=== PATIENT | female | born 1955 | race Caucasian/White ===

== ENCOUNTER → 2018-07-01 09:54 | Outpatient (CLI) | payer OTHER, MEDICAID, SELFPAY ==
--- NOTE | 2018-07-01 10:25 | DI.RAD.S_ITS ---
PROCEDURE: XR RIBS LT MIN 3V W CXR1V INDICATIONS: rib pain and shortness of breath TECHNIQUE: 2 views of the left ribs were acquired, along with a single view chest. COMPARISON: [facility], , CHEST 2 VIEW, 10/17/2016, 15:43. FINDINGS: Surgical changes and devices: None. Bones and chest wall: No fractures or dislocations. No suspicious bony lesions. Overlying soft tissues appear unremarkable. Lungs and pleura: No pleural effusions or pneumothorax. Lungs appear clear. Mediastinum: Mediastinal contours appear normal. Heart size is normal. IMPRESSION: No acute process. No evidence of rib fracture.. If symptoms and/or clinical suspicion for pathology persist, further assessment with repeat, or advanced imaging (e.g., CT or bone scan) may be helpful for further assessment. Dictated by: Denisa Su M.D. on 07/01/2018 at 10:38 Approved by: Denisa Su M.D. on 07/01/2018 at 10:39
== END ==
PROVIDERS: Family Provider Family Medicine; PCP Family Medicine; Visit Provider Physician Assistant
DX: R07.81 Pleurodynia (principal); R06.02 Shortness of breath
CPT/HCPCS: 71101

== ENCOUNTER → 2018-10-13 11:32 | Outpatient (CLI) | payer OTHER, MEDICAID, SELFPAY ==
[2018-10-13 13:28] LABS: Appearance Urine UA CLEAR; Bilirubin Urine UA NEGATIVE (NEGATIVE); Color Urine UA YELLOW; Glucose Urine UA NEGATIVE (Negative); Ketones Urine UA NEGATIVE (NEGATIVE); Leukocyte Esterase Urine UA NEGATIVE (NEGATIVE); Nitrite Urine UA NEGATIVE (Negative); Occult Blood Urine UA 1+ (Negative); Protein Urine UA NEGATIVE (Negative); Specific Gravity Urine UA 1.025 (1.000-1.035); Urobilinogen Urine UA 0.2 E.U./dL (0.2); pH Urine UA 5.5 (4.5-8.0)
[2018-10-13 13:54] LABS: Bacteria Urine Few (2-10); Culture Indicated Urine Cult Not Indicated; RBC Urine 1-5/HPF (0-5/HPF); WBC Urine 0-1/HPF (0-5/HPF)
== END ==
PROVIDERS: Family Provider Family Medicine; PCP Family Medicine; Visit Provider Family Medicine
DX: R30.0 Dysuria (principal)
CPT/HCPCS: 81001

== ENCOUNTER → 2019-07-01 10:02 | Outpatient (CLI) | payer OTHER, MEDICAID, SELFPAY ==
[2019-07-01 11:20] LABS: Add Manual Diff / Slide Review NO; Basophils Absolute Auto 100 /uL (0-100); Basophils Percent Auto 1.2 % (0-2); Eosinophils Absolute Auto 100 /uL (0-450); Eosinophils Percent Auto 1.6 % (2-4); Hematocrit 38.3 % (36-46); Hemoglobin 12.9 g/dL (12.0-16.0); Lymphocytes Absolute Auto 1500 /uL (1100-4500); Lymphocytes Percent Auto 22.7 % (25-40); Mean Corpuscular HGB Conc 33.6 % (30-36); Mean Corpuscular Volume 83.2 fL (80-100); Monocytes Absolute Auto 400 /uL (0-900); Monocytes Percent Auto 5.9 % (3-14); Neutrophils Absolute Auto 4500 /uL (1500-7000); Neutrophils Percent Auto 68.6 % (50-75); Platelet Count 376 X10^3/uL (150-400); Red Cell Distribution Width 13.5 % (11.6-14.8); White Blood Cell Count 6.6 X10^3/uL (4.5-11.0)
[2019-07-01 11:32] LABS: BUN Creatinine Ratio 18.2 (6-22); Blood Urea Nitrogen 20 mg/dL (7-17); Calcium 10.4 mg/dL (8.4-10.2); Carbon Dioxide 22 mmol/L (22-32); Chloride 100 mmol/L (98-107); Estimated Glomerular Filt Rate 50.5 mL/min (>60); Glucose 99 mg/dL (80-110); HEMOLYSIS < 15 (0-50); Potassium 4.5 mmol/L (3.4-5.1); Sodium 137 mmol/L (137-145)
== END ==
PROVIDERS: PCP Family Medicine; Visit Provider Physician Assistant
DX: R30.0 Dysuria (principal); R31.9 Hematuria, unspecified
CPT/HCPCS: 36415; 80048; 85025; 87086

== ENCOUNTER → 2019-07-02 08:49 | Outpatient (CLI) | payer OTHER, MEDICAID, SELFPAY ==
[2019-07-02 10:32] LABS: BUN Creatinine Ratio 15.8 (6-22); Blood Urea Nitrogen 19 mg/dL (7-17); Calcium 10.1 mg/dL (8.4-10.2); Carbon Dioxide 25 mmol/L (22-32); Chloride 99 mmol/L (98-107); Estimated Glomerular Filt Rate 45.7 mL/min (>60); Glucose 93 mg/dL (80-110); HEMOLYSIS < 15 (0-50); Potassium 4.4 mmol/L (3.4-5.1); Sodium 137 mmol/L (137-145)
[2019-07-02 18:55] LABS: Bacteria Urine None Seen; RBC Urine None Seen (0-5/HPF)
[2019-07-02 19:15] LABS: Appearance Urine UA CLEAR; Bilirubin Urine UA NEGATIVE (NEGATIVE); Color Urine UA YELLOW; Glucose Urine UA NEGATIVE (Negative); Ketones Urine UA NEGATIVE (NEGATIVE); Leukocyte Esterase Urine UA NEGATIVE (NEGATIVE); Nitrite Urine UA NEGATIVE (Negative); Occult Blood Urine UA 2+ (Negative); Protein Urine UA NEGATIVE (Negative); Urobilinogen Urine UA 0.2 E.U./dL (0.2)
[2019-07-02 19:58] LABS: Culture Indicated Urine Cult Not Indicated; Transitional Epi Cells Urine 1-5/HPF (0-5/HPF); WBC Urine 0-1/HPF (0-5/HPF)
== END ==
PROVIDERS: Family Medicine; PCP Family Medicine; Visit Provider Physician Assistant
DX: R79.89 Other specified abnormal findings of blood chemistry (principal); R31.9 Hematuria, unspecified
CPT/HCPCS: 36415; 80048; 81001

== ENCOUNTER → 2019-07-07 09:29 | Outpatient (CLI) | payer OTHER, MEDICAID, SELFPAY ==
--- NOTE | 2019-07-07 09:45 | DI.CT.S_ITS ---
PROCEDURE: CT KIDNEY URETER BLADDER (KUB) INDICATIONS: gross hematuria, bilateral flank pain TECHNIQUE: Noncontrast 5 mm thick sections acquired from the diaphragms to the symphysis. 5 mm thick coronal and sagittal reformats were then performed. For radiation dose reduction, the following was used: automated exposure control, adjustment of mA and/or kV according to patient size. COMPARISON: [facility], , RENAL COMPLETE, 12/31/2016, 7:24. FINDINGS: Image quality: Excellent. Lung bases: Lung bases are clear. Heart size is normal. Urinary system: Both kidneys are mildly atrophic. Multiple bilateral renal cysts are present. There is a nonobstructing calcification within the inferior pole right kidney measuring 2 mm. 5 mm hyperdense focus involving the posterior aspect of the inferior pole left kidney, consistent with hemorrhagic cyst. Scattered smaller hemorrhagic cyst within the right kidney are present. Within the superior pole right kidney, there is a 20 mm diameter high density focus with Hounsfield units of 52. No kidney stones. No hydronephrosis or perinephric fat stranding. Both ureters appear non-dilated throughout their expected courses. Bladder wall thickness is normal; no calcified bladder stones. Other solid organs: Liver is normal in size. 15 mm cyst within the right hepatic lobe posteriorly. Indeterminate 12 mm low-density focus within the lateral segment left hepatic lobe superiorly. Gallbladder demonstrates a calculus within its lumen. Pancreas is normal in contours. Spleen is normal in size. No adrenal nodules. Peritoneum and bowel: Unenhanced bowel loops demonstrate normal wall thickness and caliber. No free fluid or air. Nodes and vessels: No retroperitoneal or mesenteric adenopathy by size criteria. Aorta and inferior vena cava are normal in caliber. Abdominal wall: No ventral hernias. Pelvis: No free pelvic fluid. No inguinal hernias or adenopathy. Bones: No suspicious bony lesions. No vertebral body compression fractures. Stone attenuation measurements reference DELETE FROM FINAL REPORT Calcium oxalate: 6521-8144 HU. Hydroxyapatite: 2295-9114 HU. Uric acid: 200-450 HU. Struvite: 600-900 HU. Cystine: 600-1100 HU. IMPRESSION: 1. Nonobstructing small right renal calculus. No evidence of urinary tract obstruction. No ureteral calcifications. 2. Multiple bilateral renal hemorrhagic cysts. 3. High density focus within the superior pole right kidney measuring 20 mm. This may represent a hemorrhagic cyst. Ultrasound is recommended to assess for underlying neoplasm. 4. Cholelithiasis. Dictated by: Denisa Su M.D. on 07/07/2019 at 10:51 Approved by: Denisa Su M.D. on 07/07/2019 at 10:55
== END ==
PROVIDERS: Family Provider Family Medicine; PCP Family Medicine; Visit Provider Family Medicine
DX: R31.0 Gross hematuria (principal); N20.0 Calculus of kidney; N28.1 Cyst of kidney, acquired; R10.9 Unspecified abdominal pain; K80.20 Calculus of gallbladder without cholecystitis without obstruction
CPT/HCPCS: 74176

== ENCOUNTER → 2019-07-09 07:44 | Outpatient (CLI) | payer OTHER, MEDICAID, SELFPAY ==
[2019-07-09 08:21] LABS: Blood Urea Nitrogen 22 mg/dL (7-17); Calcium 9.3 mg/dL (8.4-10.2); Carbon Dioxide 23 mmol/L (22-32); Chloride 103 mmol/L (98-107); Estimated Glomerular Filt Rate 50.5 mL/min (>60); Glucose 102 mg/dL (80-110); HEMOLYSIS < 15 (0-50); Potassium 4.1 mmol/L (3.4-5.1); Sodium 138 mmol/L (137-145)
[2019-07-15 12:46] LABS: TSH w/ Reflex to FT4 1.13 uIU/mL (0.47-4.68)
== END ==
PROVIDERS: PCP Family Medicine; Visit Provider Family Medicine
DX: N28.9 Disorder of kidney and ureter, unspecified (principal)
CPT/HCPCS: 36415; 80048; 84443

== ENCOUNTER → 2019-07-13 06:59 | Outpatient (CLI) | payer OTHER, MEDICAID, SELFPAY ==
--- NOTE | 2019-07-13 07:01 | DI.US.S_ITS ---
PROCEDURE: US RENAL COMPLETE INDICATIONS: GROSS HEMATURIA TECHNIQUE: Real-time scanning was performed of the kidneys and bladder, with image documentation. COMPARISON: [facility], CT, CT KIDNEY URETER BLADDER (KUB), 07/07/2019, 9:31. FINDINGS: Kidneys: Kidneys are normal in size. Right kidney measures 11.3 cm long; left kidney measures 11.7 cm long. Right renal cortical thickness is 1.3 cm; left renal cortical thickness is 1.6 cm. Renal cortical echotexture is heterogeneous. No hydronephrosis or nephrolithiasis. No suspicious solid mass lesions. A 1.7 x 1.3 x 1.6 cm slightly complex cyst is seen in the posterior cortex of the superior pole of the right kidney. A 1.9 x 1.2 x 1.4 cm mildly complex cyst is noted in the mid left kidney. There are numerous smaller simple cysts bilaterally. Bladder: Pre-void bladder volume is 247 mL. Post-void residual is 0 mL. Pre-void images demonstrate no intraluminal masses or stones. On pre-void images, both ureteral jets are noted with color Doppler interrogation. (Of note, ureteral jets may not be detectable in up to 25% of cases due to insufficient differences in specific gravity between ureteral and bladder urine). Miscellaneous: No free pelvic fluid. IMPRESSION: 1. Multiple renal cortical cysts bilaterally as described including 2 slightly complex cysts, one in the right kidney and one in the left kidney. No solid renal masses. 2. Heterogeneous renal cortical echotexture suggesting medical renal disease. 3. No hydronephrosis. 4. A small nonobstructive right renal stone seen on CT is not visualized on ultrasound. Dictated by: Andreina Mesa M.D. on 07/13/2019 at 9:21 Approved by: Andreina Mesa M.D. on 07/13/2019 at 9:30
== END ==
PROVIDERS: PCP Family Medicine; Visit Provider Family Medicine
DX: R31.0 Gross hematuria (principal); N20.0 Calculus of kidney; N28.1 Cyst of kidney, acquired
CPT/HCPCS: 76770

== ENCOUNTER 2019-10-25 14:04 | Emergency (ER) | payer OTHER, MEDICAID, SELFPAY ==
[2019-10-25 14:10] VITALS: BP 140/91; PULSE 117; RESP 20; TEMP 36.9; O2SAT 99
--- NOTE | 2019-10-25 15:41 | ED.GENADULT ---
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 Patient reports getting a headache and feeling ?loopy ?at work on Friday and today. She describes the headache as a dull aching 4/10 as worse when she is at work and better after she leaves. 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 Patient states she has smelled gas over the past year but the past few days it has been worse. She reports that her payroll accounting manager felt nauseated. They called the [employer] to check the place but is unsure if they found anything. Patient denies any symptoms at this time. Patient denies nausea, vomiting, dizziness, abdominal pain, shortness of breath, cough, vision changes, chest pain, or other concerns. She states she had an episode of diarrhea but states that she occasionally has diarrhea any way and this is not abnormal for her. Related Data Previous Rx's Medication Instructions Recorded sertraline 100 mg tablet 200 mg PO DAILY #180 tab 07/15/19 conjugated estrogens 0.625 mg/gram 0.625 mg VAG DAILY #30 gram 09/07/19 vaginal cream lorazepam 0.5 mg tablet 0.25 mg PO TIDP PRN #10 tab 09/21/19 Allergies Allergy/AdvReac Type Severity Reaction Status Date / Time Sulfa (Sulfonamide Allergy Unknown Verified 08/12/19 09:29 Antibiotics) [SULFA (SULFONAMIDE ANTIBIOTICS)] Review of Systems <VERONICA William - Last Filed: 10/25/19 20:00> Review of Systems Narrative: REVIEW OF SYSTEMS: GENERAL: Denies fever, chills, malaise, or wt. loss. HENT: No head trauma, sore throat, or dysphagia. Patient complains of headache, see HPI. EYES: No loss of vision, double vision, eye pain, or irritation. CARDIOVASCULAR: No chest pain, palpitations, or orthopnea. RESPIRATORY: No shortness of breath or cough. GASTROINTESTINAL: Complains of an episode of diarrhea, see HPI. GENITOURINARY: No flank pain, urinary incontinence, hesitancy, frequency, or dysuria. MUSCULOSKELETAL: No pain, weakness, or trauma. INTEGUMENTARY: No rash, lesions, or pruritus. NEURO: No numbness, tingling, memory loss, confusion, or headaches. PSYCH: No behavior or mood changes. Patient History <VERONICA William - Last Filed: 10/25/19 20:00> Medical History Anemia (Chronic ~1969) Chicken pox (Resolved ~1975) Endometriosis (Resolved ~1969) Heavy menstrual period (Resolved ~1969) Hypertension (Chronic) Irregular menstrual cycle (Resolved ~1969) Kidney stones (Chronic) Measles (Resolved ~1959) Mumps (Resolved ~1959) Ovarian cyst (Chronic ~1989) Painful menstrual periods (Resolved ~1969) Recurrent sinusitis (Chronic) Rubella (Resolved ~1969) Surgical History Anesthesia (Resolved) History of bilateral salpingo-oophorectomy (BSO) (~1991) History of mandibular surgery (Resolved ~1980) Status post hysterectomy (~1988) Family History Grandmother Heart disease Mother Mental health problem Social History marital status: unmarried,single number of children: 0 household members: other lives independently: Yes education level: vocational occupational status: employed Smoking Status: Never smoker alcohol intake: never substance use type: does not use Smoking Status: Never smoker alcohol intake frequency: 0-2 drinks per day Substance Use Type: does not use Exam <VERONICA William - Last Filed: 10/25/19 20:00> Initial Vital Signs Initial Vital Signs: Vital Signs Temperature 98.4 F 10/25/19 14:10 Pulse Rate 117 H 10/25/19 14:10 Respiratory Rate 20 10/25/19 14:10 Blood Pressure 140/91 H 10/25/19 14:10 Pulse Oximetry 99 10/25/19 14:10 PHYSICAL EXAMINATION: GENERAL: Well groomed, alert, and cooperative. Answers questions promptly and appropriately. Vital signs noted. HENT: Normocephalic, atraumatic. Ear canals patent. Oral mucosa is pink and moist. Oropharynx without erythema. EYES: Conjunctiva pink, sclera white, no periorbital swelling. CHEST: Normal to inspection and without deformities. CARDIOVASCULAR: S1 and S2 sounds normal. Increased rate-(patient states she normally has increased heart rate) and rhythm, no murmurs, clicks, or bruits. No pedal edema. RESPIRATORY: Normal respiratory rate, trachea midline, airway patent. No stridor, nasal flaring or accessory muscle use. Lungs are clear in all gudino without wheeze, rhonchi, or crackles. GASTROINTESTINAL: Bowel sounds normoactive. Abdomen is soft and non-tender. No organomegaly. MUSCULOSKELETAL: Normal gait and coordination. Equal tone and mass bilaterally. EXTREMITIES: CMS intact. Moves all extremities. SKIN: Warm, dry, soft, appropriate color for ethnicity. No lesions, rashes, or wounds. NEURO: Alert and Oriented X 3. Good coordination. CN III-XIII intact. No ataxia, or sensory deficits, or cognitive issues. PSYCH: Appropriate affect and mood. <Linh Sauceda DO - Last Filed: 10/26/19 20:29> Initial Vital Signs Initial Vital Signs: Vital Signs Temperature 98.4 F 10/25/19 14:10 Pulse Rate 117 H 10/25/19 14:10 Respiratory Rate 10/25/19 14:10 Blood Pressure 140/91 H 10/25/19 14:10 Pulse Oximetry 99 10/25/19 14:10 Course <VERONICA William - Last Filed: 10/25/19 20:00> Course Course Narrative: Patient reports she normally has increased heart rate, she was able to ambulate around the room without increased symptoms or feelings of dizziness, racing heart, or shortness of breath. Consultations Consultation #1: Patient staffed with Dr. Sauceda. Vital Signs Vital signs: Vital Signs - 8 hr 10/25/19 14:10 10/25/19 15:51 Temperature 98.4 F Pulse Rate 117 H 110 H Respiratory Rate 20 18 Blood Pressure 140/91 H 136/86 Pulse Oximetry 99 98 <Linh Arsenio SandovalsuryDO - Last Filed: 10/26/19 20:29> Vital Signs Vital signs: Vital Signs - 8 hr 10/25/19 14:10 10/25/19 15:51 Temperature 98.4 F Pulse Rate 117 H 110 H Respiratory Rate 20 18 Blood Pressure 140/91 H 136/86 Pulse Oximetry 99 98 Medical Decision Making <Karina MagañaVERONICA - Last Filed: 10/25/19 20:00> Medical Records Medical records reviewed: Yes I reviewed the patient's medical records. Lab Data Lab results reviewed: Yes I reviewed the patient's lab results. MDM Narrative Medical decision making narrative: 64-year-old female presents emergency department complaining of headaches and feeling ?loopy ?1 at work, she is unsure if her work has a gas leak. She does not have symptoms at this time and states her symptoms usually resolve after leaving the work place. She has a history of a high heart rate in the 110s-115s which is normal for her. She does not have any other symptoms such as abdominal pain, nausea, vomiting, or headaches at this time. Patient was counseled extensively about signs of carbon monoxide poisoning and counseled about increasing ventilation. She was encouraged to have the fire department come and check the building that she works in. She was given strict ED precautions for new or worsening symptoms. Less likely cranial etiology of symptoms resolved after she leaves the work environment, less likely cardiac or respiratory etiology as she denies any symptoms such as chest pain or shortness of breath at this time, all symptoms resolve after she leaves the work place. Differential also includes anxiety related to work stress, chemical exposure, or carbon monoxide exposure.. She was encouraged to follow up with her primary care provider in the next few weeks for further evaluation. Discharge Plan Departure Patient Disposition: Home Clinical Impression: Environmental exposure Discharge Date/Time: 10/25/19 15:52 Instructions: DI for Carbon Monoxide Poisoning Activity Restrictions/Additional Instructions: Thank you for entrusting me with your care today. As discussed, it appears that your symptoms are directly related to your environment. I recommend keeping good ventilation such as opening a window and having the fire department come to the building and evaluate with a carbon monoxide meter as well as installing a carbon monoxide alarm. Return emergency department for new or worsening symptoms such as syncope, chest pain, shortness of breath, severe vomiting, red and swollen tongue, or other concerns. Prescriptions: No Action sertraline [Zoloft] 100 mg tablet 200 mg PO DAILY Qty: 180 RF: 1 Premarin 0.625 mg/gram cream 0.625 mg VAG DAILY Qty: 30 RF: 3 lorazepam [Ativan] 0.5 mg tablet 0.25 mg PO TIDP PRN (Reason: anxiety) Qty: 10 RF: 0 Referrals: Mile De La Rosa DO [Primary Care Provider] -
[2019-10-25 15:51] VITALS: BP 136/86; PULSE 110; RESP 18; O2SAT 98
== END 2019-10-25 15:52 | disposition home or self-care (01) ==
PROVIDERS: Emergency Provider Nurse Practitioner; PCP Family Medicine
DX: T75.89XA Other specified effects of external causes, initial encounter (principal); R51 Headache
CPT/HCPCS: 99281

== ENCOUNTER 2019-10-28 12:02 | Emergency (ER) | payer OTHER, MEDICAID, SELFPAY ==
[2019-10-28 12:08] VITALS: BP 148/91; PULSE 99; RESP 15; TEMP 37.4; O2SAT 98; BMI 27.4
--- NOTE | 2019-10-28 12:39 | ED_ITS ---
HPI - Dizziness <VERONICA William - Last Filed: 10/28/19 22:00> General Chief Complaint: Dizziness Stated Complaint: dizziness Time Seen by Provider: 10/28/19 12:20 Source: patient Mode of arrival: Ambulatory Limitations: no limitations History of Present Illness HPI Narrative: 64-year-old female with a history of hypertension and anxiety, presents emergency department complaining exposure to carbon monoxide. She was here 2 days ago and evaluated. Patient states that she has been working at this job for multiple years and believes there has been a gas leak for years. She states all of her coworkers often get a headache, dizziness, and nausea as the day progresses. She has not return to work since the past 3 days but has continued to have a headache, mild nausea, and feeling ?off ?. Patient states the [employer] was called and reported a possible gas leak in the building, most likely from the furnace. 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 She denies any chest pain, shortness of breath, fevers, chills, vomiting, cough, fevers, or blood in her stool. She states her headache is a dull aching 5/10 intermittent that is worse when she lies down. She has been taking Tylenol which has impr alexei her pain moderately. She states she occasionally feels dizzy when she stands up very quickly. Related Data Previous Rx's Medication Instructions Recorded sertraline 100 mg tablet 200 mg PO DAILY #180 tab 07/15/19 conjugated estrogens 0.625 mg/gram 0.625 mg VAG DAILY #30 gram 09/07/19 vaginal cream lorazepam 0.5 mg tablet 0.25 mg PO TIDP PRN #10 tab 09/21/19 Allergies Allergy/AdvReac Type Severity Reaction Status Date / Time Sulfa (Sulfonamide Allergy Unknown Verified 10/28/19 12:13 Antibiotics) [SULFA (SULFONAMIDE ANTIBIOTICS)] Review of Systems <VERONICA William - Last Filed: 10/28/19 22:00> Review of Systems Narrative: REVIEW OF SYSTEMS: GENERAL: Denies fever or chills. HENT: No head trauma, hearing loss or sore throat. Complains of headache, see HPI. EYES: No loss of vision, double vision, eye pain, or irritation. CARDIOVASCULAR: No chest pain or syncope. RESPIRATORY: No shortness of breath or cough. GASTROINTESTINAL: No nausea, vomiting, diarrhea, or constipation. GENITOURINARY: No flank pain or dysuria. MUSCULOSKELETAL: No pain, weakness, or deformities. INTEGUMENTARY: No rash, lesions, or pruritus. NEURO: No numbness, tingling, memory loss, or confusion. Complains of dizziness, see HPI. PSYCH: No behavior or mood changes. Patient History <VERONICA William - Last Filed: 10/28/19 22:00> Medical History Anemia (Chronic ~1969) Chicken pox (Resolved ~1975) Endometriosis (Resolved ~1969) Heavy menstrual period (Resolved ~1969) Hypertension (Chronic) Irregular menstrual cycle (Resolved ~1969) Kidney stones (Chronic) Measles (Resolved ~1959) Mumps (Resolved ~1959) Ovarian cyst (Chronic ~1989) Painful menstrual periods (Resolved ~1969) Recurrent sinusitis (Chronic) Rubella (Resolved ~1969) Surgical History Anesthesia (Resolved) History of bilateral salpingo-oophorectomy (BSO) (~1991) History of mandibular surgery (Resolved ~1980) Status post hysterectomy (~1988) Family History Grandmother Heart disease Mother Mental health problem Social History marital status: unmarried,single number of children: 0 household members: other lives independently: Yes education level: vocational occupational status: employed Smoking Status: Never smoker alcohol intake: never substance use type: does not use Smoking Status: Never smoker alcohol intake frequency: holidays/special occasions only Substance Use Type: does not use Exam <VERONICA William - Last Filed: 10/28/19 22:00> Initial Vital Signs Initial Vital Signs: Vital Signs Temperature 99.3 F 10/28/19 12:08 Pulse Rate 99 H 10/28/19 12:08 Respiratory Rate 15 10/28/19 12:08 Blood Pressure 148/91 H 10/28/19 12:08 Pulse Oximetry 98 10/28/19 12:08 PHYSICAL EXAMINATION: GENERAL: Well groomed, alert, and cooperative. Answers questions promptly and appropriately. Vital signs noted. HENT: Normocephalic, atraumatic. Ear canals patent. Oral mucosa is pink and moist. Oropharynx without erythema. EYES: PERRLA, EOMIs, Conjunctiva pink, sclera white, no periorbital swelling. CHEST: Normal to inspection and without deformities. CARDIOVASCULAR: S1 and S2 sounds normal. Regular rate and rhythm, no murmurs, clicks, or bruits. No pedal edema. RESPIRATORY: Normal respiratory rate, trachea midline, airway patent. No stridor, nasal flaring or accessory muscle use. Lungs are clear in all gudino without wheeze, rhonchi, or crackles. GASTROINTESTINAL: Bowel sounds normoactive. Abdomen is soft and non-tender. No organomegaly. MUSCULOSKELETAL: Normal gait and coordination. Equal tone and mass bilaterally. EXTREMITIES: CMS intact. Moves all extremities. SKIN: Warm, dry, soft, appropriate color for ethnicity. No lesions, rashes, or wounds. NEURO: Alert and Oriented X 3. Good coordination. CN III-XIII grossly intact. No ataxia, or sensory deficits, or cognitive issues. PSYCH: Appropriate affect and mood. <Eddie Lopez MD - Last Filed: 11/01/19 20:53> Initial Vital Signs Initial Vital Signs: Vital Signs Temperature 99.3 F 10/28/19 12:08 Pulse Rate 99 H 10/28/19 12:08 Respiratory Rate 15 10/28/19 12:08 Blood Pressure 148/91 H 10/28/19 12:08 Pulse Oximetry 98 10/28/19 12:08 Scores <VERONICA William - Last Filed: 10/28/19 22:00> GCS [place] coma scale eye opening: Spontaneous [place] coma scale verbal response: Orientated [place] coma scale motor response: Obey commands Ale[place] coma scale total score: 15 Course <VERONICA William - Last Filed: 10/28/19 22:00> Course Course Narrative: Patient was given fluids, Toradol and ondansetron. She reports complete resolution of headache after medication administration. She denies any nausea and states she is feeling much better. Patient was discharged with extensive counseling about environmental exposure. She was given a work note per request. Orders Ordered: Discontinued Medications Sodium Chloride (Normal Saline 0.9%) 1,000 mls @ 1,000 mls/hr IV BOLUS ONE Stop: 10/28/19 13:37 Last Infusion: 10/28/19 14:21 Dose: 0 mls/hr Documented by: Admin: 10/28/19 13:25 Dose: 1,000 mls/hr Documented by: RICHAR Ketorolac Tromethamine (Toradol) 30 mg IV NOW ONE Stop: 10/28/19 12:39 Last Admin: 10/28/19 13:25 Dose: 30 mg Documented by: RICHAR Ondansetron HCl (Zofran) 4 mg IV NOW ONE Stop: 10/28/19 12:39 Last Admin: 10/28/19 13:25 Dose: 4 mg Documented by: RICHAR Vital Signs Vital signs: Vital Signs - 8 hr 10/28/19 14:21 10/28/19 14:26 Pulse Rate 74 77 Respiratory Rate 15 Blood Pressure 154/82 H Blood Pressure [Left Arm] 154/82 H Pulse Oximetry 100 100 <Eddie Lopez MD - Last Filed: 11/01/19 20:53> Orders Ordered: Discontinued Medications Sodium Chloride (Normal Saline 0.9%) 1,000 mls @ 1,000 mls/hr IV BOLUS ONE Stop: 10/28/19 13:37 Last Infusion: 10/28/19 14:21 Dose: 0 mls/hr Documented by: Admin: 10/28/19 13:25 Dose: 1,000 mls/hr Documented by: RICHAR Ketorolac Tromethamine (Toradol) 30 mg IV NOW ONE Stop: 10/28/19 12:39 Last Admin: 10/28/19 13:25 Dose: 30 mg Documented by: RICHAR Ondansetron HCl (Zofran) 4 mg IV NOW ONE Stop: 10/28/19 12:39 Last Admin: 10/28/19 13:25 Dose: 4 mg Documented by: RICHAR Vital Signs Vital signs: Vital Signs - 8 hr 10/28/19 14:21 10/28/19 14:26 Pulse Rate 74 77 Respiratory Rate 15 Blood Pressure 154/82 H Blood Pressure [Left Arm] 154/82 H Pulse Oximetry 100 100 MDM - Dizziness <VERONICA William - Last Filed: 10/28/19 22:00> Medical Records Attestation: I reviewed the patient's medical records. Lab Data Attestation: I reviewed the patient's lab results. Result diagrams: 10/28/19 13:22 10/28/19 13:22 Labs: Lab Results 10/28/19 10/28/19 Range/Units 13:22 13:22 WBC 6.0 (4.5-11.0) X10^3/uL RBC 4.32 (4.0-5.2) X10^6/uL Hgb 12.4 (12.0-16.0) g/dL Hct 35.8 L (36-46) % MCV 83.0 (80-100) fL MCH 28.7 (26-34) PG MCHC 34.6 (30-36) % RDW 13.6 (11.6-14.8) % Plt Count 314 (150-400) X10^3/uL Neut % (Auto) 69.2 (50-75) % Lymph % (Auto) 22.7 L (25-40) % [place] % (Auto) 5.5 (3-14) % Eos % (Auto) 1.3 L (2-4) % Baso % (Auto) 1.3 (0-2) % Neut # (Auto) 4200 (4374-1071) /uL Lymph # (Auto) 1400 (8220-7694) /uL [place] # (Auto) 300 (0-900) /uL Eos # (Auto) 100 (0-450) /uL Baso # (Auto) 100 (0-100) /uL Sodium 138 (137-145) mmol/L Potassium 4.4 (3.4-5.1) mmol/L Chloride 105 (98-107) mmol/L Carbon Dioxide 26 (22-32) mmol/L BUN 19 H (7-17) mg/dL Creatinine 1.10 H (0.52-1.04) mg/dL Estimated GFR 50.3 L (>60) mL/min BUN/Creatinine Ratio 17.3 (6-22) Glucose 98 (80-110) mg/dL Calcium 9.2 (8.4-10.2) mg/dL Total Bilirubin 0.3 (0.2-1.3) mg/dL AST 22 (14-36) IU/L ALT 17 (<35) IU/L Alkaline Phosphatase 87 (38-126) U/L Troponin I < 0.012 (0.01-0.034) ng/mL Total Protein 7.5 (6.3-8.2) g/dL Albumin 4.2 (3.5-5.0) g/dL Globulin 3.3 (1.7-4.1) g/dL Albumin/Globulin Ratio 1.3 (1.0-2.8) Imaging Data Chest x-ray: Radiologist's Impression: [address] [address] XRay Report Signed Patient: aRine Mcgill MMR#: [id number] : 8Acct:[id number] Age/Sex: 64 / FDate of Service: 10/28/19 Loc: ED Accession Number: [id number] Procedure: XR chest 1V Ordering Provider: Karina Magaña PROCEDURE: XR CHEST 1V INDICATIONS: Dizziness TECHNIQUE: One view of the chest was acquired. COMPARISON: [facility], , CHEST 2 VIEW, 10/17/2016, 15:43. FINDINGS: Surgical changes and devices: None. Lungs and pleura: Lungs are clear. No pleural effusions or pneumothorax. Mediastinum: Mediastinal contours appear normal. Heart size is normal. Bones and chest wall: No suspicious bony lesions. Overlying soft tissues appear unremarkable. IMPRESSION: No acute process. Dictated by: Denisa Su M.D. on 10/28/2019 at 13:15 Approved by: Denisa Su M.D. on 10/28/2019 at 13:15 ECG Data Interpretation: EKG given to Dr. Lopez per protocol. [facility] Narrative Medical decision making narrative: 64-year-old female presents emergency de partment for repeat evaluation after carbon monoxide exposure for the past 2 years. She states she continues to have headache and feels occasionally dizziness. Patient was worked up further to evaluate for the cause of dizziness. I suspect this is most likely related to her monoxide exposure as h er symptoms completely resolved after administration of Toradol, Zofran, and fluids. Less likely cardiac etiology due to new normal troponin, non remarkable EKG, and resolution of symptoms after fluid administration. Less likely cranial etiology due to reports of gradual onset over the past 2 years, worsening symptoms with exposure to work environment, reports of actual gas leak at work, and lack of other significant symptoms such as neurological abnormalities. Patient was encouraged to follow up with her primary care provider in 1-2 weeks for further evaluation his differential also includes chronic migraines, stress- induced headaches, and etc. patient agreed with plan of care verbalized understanding. No concerns for severe carbon monoxide poisoning as CO level was 3, symptoms resolved during emergency department stay, and she has not been exposed or the past 3 days. <Eddie Lopez MD - Last Filed: 11/01/19 20:53> Lab Data Labs: Lab Results 10/28/19 10/28/19 Range/Units 13:22 13:22 WBC 6.0 (4.5-11.0) X10^3/uL RBC 4.32 (4.0-5.2) X10^6/uL Hgb 12.4 (12.0-16.0) g/dL Hct 35.8 L (36-46) % MCV 83.0 (80-100) fL MCH 28.7 (26-34) PG MCHC 34.6 (30-36) % RDW 13.6 (11.6-14.8) % Plt Count 314 (150-400) X10^3/uL Neut % (Auto) 69.2 (50-75) % Lymph % (Auto) 22.7 L (25-40) % [place] % (Auto) 5.5 (3-14) % Eos % (Auto) 1.3 L (2-4) % Baso % (Auto) 1.3 (0-2) % Neut # (Auto) 4200 (7147-0003) /uL Lymph # (Auto) 1400 (6598-2237) /uL [place] # (Auto) 300 (0-900) /uL Eos # (Auto) 100 (0-450) /uL Baso # (Auto) 100 (0-100) /uL Sodium 138 (137-145) mmol/L Potassium 4.4 (3.4-5.1) mmol/L Chloride 105 (98-107) mmol/L Carbon Dioxide 26 (22-32) mmol/L BUN 19 H (7-17) mg/dL Creatinine 1.10 H (0.52-1.04) mg/dL Estimated GFR 50.3 L (>60) mL/min BUN/Creatinine Ratio 17.3 (6-22) Glucose 98 (80-110) mg/dL Calcium 9.2 (8.4-10.2) mg/dL Total Bilirubin 0.3 (0.2-1.3) mg/dL AST 22 (14-36) IU/L ALT 17 (<35) IU/L Alkaline Phosphatase 87 (38-126) U/L Troponin I < 0.012 (0.01-0.034) ng/mL Total Protein 7.5 (6.3-8.2) g/dL Albumin 4.2 (3.5-5.0) g/dL Globulin 3.3 (1.7-4.1) g/dL Albumin/Globulin Ratio 1.3 (1.0-2.8) Discharge Plan Departure Patient Disposition: Home Clinical Impression: Environmental exposure Headache Qualifiers: Headache type: unspecified Headache chronicity pattern: unspecified pattern Intractability: not intractable Qualified Code(s): R51 - Headache Discharge Date/Time: 10/28/19 14:27 Activity Restrictions/Additional Instructions: Thank you for entrusting me with your care today. As discussed, your labs, EKG, and imaging are non concerning. You most likely have been exposed to carbon monoxide, the best treatment for this is to avoid further exposure, treat the headache with Tylenol or ibuprofen, drink lots of fluids, and get rest. I recommend you follow-up with her primary care provider in 1-2 weeks for further evaluation. Return emergency department for new or worsening symptoms such as severe headaches, uncontrollable vomiting, high fevers, syncope, chest pain, shortness of breath, or other concerns. Prescriptions: No Action sertraline [Zoloft] 100 mg tablet 200 mg PO DAILY Qty: 180 RF: 1 Premarin 0.625 mg/gram cream 0.625 mg VAG DAILY Qty: 30 RF: 3 lorazepam [Ativan] 0.5 mg tablet 0.25 mg PO TIDP PRN (Reason: anxiety) Qty: 10 RF: 0 Referrals: Mile De La Rosa DO [Primary Care Provider] - Stand Alone Forms: Work Release Note
--- NOTE | 2019-10-28 12:45 | DI.RAD.S_ITS ---
PROCEDURE: XR CHEST 1V INDICATIONS: Dizziness TECHNIQUE: One view of the chest was acquired. COMPARISON: [facility], , CHEST 2 VIEW, 10/17/2016, 15:43. FINDINGS: Surgical changes and devices: None. Lungs and pleura: Lungs are clear. No pleural effusions or pneumothorax. Mediastinum: Mediastinal contours appear normal. Heart size is normal. Bones and chest wall: No suspicious bony lesions. Overlying soft tissues appear unremarkable. IMPRESSION: No acute process. Dictated by: Denisa Su M.D. on 10/28/2019 at 13:15 Approved by: Denisa Su M.D. on 10/28/2019 at 13:15
[2019-10-28] MEDS: KETOROLAC 60 MG/2 ML VIAL 30 MG IV (13:25)
[2019-10-28] MEDS: SODIUM CHLORIDE 0.9% 1,000 ML 1000 ML IV (13:25)
[2019-10-28] MEDS: ONDANSETRON 4 MG/2 ML INJ IV (13:25)
[2019-10-28 13:34] LABS: Add Manual Diff / Slide Review NO; Basophils Absolute Auto 100 /uL (0-100); Basophils Percent Auto 1.3 % (0-2); Eosinophils Absolute Auto 100 /uL (0-450); Eosinophils Percent Auto 1.3 % (2-4); Hematocrit 35.8 % (36-46); Hemoglobin 12.4 g/dL (12.0-16.0); Lymphocytes Absolute Auto 1400 /uL (1100-4500); Lymphocytes Percent Auto 22.7 % (25-40); Mean Corpuscular HGB Conc 34.6 % (30-36); Mean Corpuscular Hemoglobin 28.7 PG (26-34); Monocytes Absolute Auto 300 /uL (0-900); Monocytes Percent Auto 5.5 % (3-14); Neutrophils Absolute Auto 4200 /uL (1500-7000); Neutrophils Percent Auto 69.2 % (50-75); Platelet Count 314 X10^3/uL (150-400); Red Blood Cell Count 4.32 X10^6/uL (4.0-5.2); Red Cell Distribution Width 13.6 % (11.6-14.8)
[2019-10-28 13:44] LABS: Alanine Aminotransferase 17 IU/L (<35); Albumin 4.2 g/dL (3.5-5.0); Albumin Globulin Ratio 1.3 (1.0-2.8); Alkaline Phosphatase 87 U/L (38-126); Aspartate Aminotransferase 22 IU/L (14-36); BUN Creatinine Ratio 17.3 (6-22); Bilirubin Total 0.3 mg/dL (0.2-1.3); Blood Urea Nitrogen 19 mg/dL (7-17); Calcium 9.2 mg/dL (8.4-10.2); Carbon Dioxide 26 mmol/L (22-32); Chloride 105 mmol/L (98-107); Estimated Glomerular Filt Rate 50.3 mL/min (>60); Globulin 3.3 g/dL (1.7-4.1); Glucose 98 mg/dL (80-110); HEMOLYSIS < 15 (0-50); Potassium 4.4 mmol/L (3.4-5.1); Sodium 138 mmol/L (137-145); Total Protein 7.5 g/dL (6.3-8.2)
[2019-10-28 13:54] LABS: Troponin I < 0.012 ng/mL (0.01-0.034)
[2019-10-28 14:21] VITALS: BP 154/82; PULSE 74; O2SAT 100
[2019-10-28 14:26] VITALS: BP 154/82; PULSE 77; RESP 15; O2SAT 100
== END 2019-10-28 14:27 | disposition home or self-care (01) ==
PROVIDERS: Emergency Provider Nurse Practitioner; PCP Family Medicine
DX: Z57.5 Occupational exposure to toxic agents in other industries (principal); R51 Headache; R42 Dizziness and giddiness; Y99.0 Civilian activity done for income or pay
CPT/HCPCS: 36415; 71045; 80053; 84484; 85025; 93005; 93010; 96361; 96374; 96375; 99284; 99285; J1885; J2405

== ENCOUNTER → 2019-11-15 10:33 | Outpatient (CLI) | payer OTHER, MEDICAID, SELFPAY ==
--- NOTE | 2019-11-15 10:34 | DI.CT.S_ITS ---
PROCEDURE: CT HEAD/BRAIN WO CON INDICATIONS: persistent headache x2 weeks with vision changes and nausea TECHNIQUE: Noncontrast 4.5 mm thick angled axial sections acquired from the foramen magnum to the vertex, with coronal and sagittal reformats. For radiation dose reduction, the following was used: automated exposure control, adjustment of mA and/or kV according to patient size. COMPARISON: None. FINDINGS: Image quality: Excellent. CSF spaces: Basal cisterns are patent. No extra-axial fluid collections. The ventricles are symmetric in size and shape. Brain: No intracranial bleeds or masses. There is cerebral volume loss for age, with resultant ventricular and sulcal prominence. There are periventricular and deep white matter chronic small vessel ischemic changes. There is intracranial internal carotid artery atherosclerosis. Skull and face: Calvarium and visualized facial bones appear intact, without suspicious lesions. Sinuses: Visualized sinuses and mastoids are clear. IMPRESSION: Normal noncontrast head CT. Dictated by: Irvin Loya M.D. on 11/15/2019 at 10:17 Approved by: Irvin Loya M.D. on 11/15/2019 at 10:18
== END ==
PROVIDERS: PCP Family Medicine; Referring Provider Family Medicine; Visit Provider Family Medicine
DX: R51 Headache (principal); R11.0 Nausea; H53.9 Unspecified visual disturbance
CPT/HCPCS: 70450

== ENCOUNTER 2019-11-23 18:08 | Emergency (ER) | payer OTHER, MEDICAID, SELFPAY ==
[2019-11-23 18:12] VITALS: BP 181/97; BP 184/102; PULSE 101; PULSE 99; RESP 18; RESP 22; TEMP 37.1; O2SAT 97; O2SAT 98
--- NOTE | 2019-11-23 18:18 | PC.NURSE ---
Pt w/ known exposure to carbon monoxide at work. Feels weakness and generally poor. Easy work of breathing. Walked here from work in fresh air. CO reading 3.
--- NOTE | 2019-11-23 18:57 | ED.GENADULT ---
HPI - General Adult General Chief complaint: Environmental Exposure Stated complaint: POSS CARBON MONOXIDE POISONING Time Seen by Provider: 11/23/19 18:47 Source: patient and old records reviewed Mode of arrival: Ambulatory Limitations: no limitations History of Present Illness HPI narrative: This is a 64-year-old female who comes in with concern for carbon monoxide poisoning. She works at the [employer] in states that she has been seen several times for this. She states at 1 point they did find a leak they stated been repaired her bosses put a carbon monoxide detector in never goes off but she gets symptoms intermittently. They will call the [facility] but when they come they can't seem to find an actual leak. Today she had symptoms she came here after work so she left work about 6:00 a.m. this evening. Patient states she has had a headache, she feels nauseated although she has chronic nausea and has a prescription for chronic anti nausea medication. She denies any chest pain or shortness of breath. She denies any vomiting. She denies any numbness or tingling. She denies any issues with bowel movements or urination. Patient takes medication for mood but denies any other medical problems. She states that sometimes other employees will have symptoms but by her description is not consistent that every employee is having symptoms at the same time. Sometimes she feels like she can small gas. Patient has not contacted the fire department to evaluate but has contacted the [facility] at times. Related Data Previous Rx's Medication Instructions Recorded sertraline 100 mg tablet 200 mg PO DAILY #180 tab 07/15/19 conjugated estrogens 0.625 mg/gram 0.625 mg VAG DAILY #30 gram 09/07/19 vaginal cream lorazepam 0.5 mg tablet 0.25 mg PO TIDP PRN #10 tab 09/21/19 ondansetron 4 mg disintegrating 4 mg PO Q8H PRN #30 tab 11/09/19 tablet Allergies Allergy/AdvReac Type Severity Reaction Status Date / Time iodine Allergy Unknown Verified 11/23/19 18:29 Penicillins Allergy Unknown Verified 11/23/19 18:29 procaine Allergy Unknown Verified 11/23/19 18:29 Sulfa (Sulfonamide Allergy Unknown Verified 11/09/19 14:20 Antibiotics) [SULFA (SULFONAMIDE ANTIBIOTICS)] Review of Systems Review of Systems ROS Unobtainable: All systems reviewed & are unremarkable except as noted in HPI and below Patient History Medical History Anemia (Chronic ~1969) Chicken pox (Resolved ~1975) Endometriosis (Resolved ~1969) Heavy menstrual period (Resolved ~1969) Hypertension (Chronic) Irregular menstrual cycle (Resolved ~1969) Kidney stones (Chronic) Measles (Resolved ~1959) Mumps (Resolved ~1959) Ovarian cyst (Chronic ~1989) Painful menstrual periods (Resolved ~1969) Recurrent sinusitis (Chronic) Rubella (Resolved ~1969) Surgical History Anesthesia (Resolved) History of bilateral salpingo-oophorectomy (BSO) (~1991) History of mandibular surgery (Resolved ~1980) Status post hysterectomy (~1988) Social History marital status: unmarried,single number of children: 0 household members: other lives independently: Yes education level: vocational occupational status: employed Smoking Status: Never smoker alcohol intake: never substance use type: does not use Smoking Status: Never smoker alcohol intake frequency: holidays/special occasions only Substance Use Type: does not use Exam Narrative Exam Narrative: GEN: well nourished, well appearing female, alert and oriented x 3, patient appears to be in mild distress. HEENT: Atraumatic, pupils are equal round reactive to light, extraocular movements are intact, nares are clear, moist mucous membranes. HEART: Regular rate and rhythm without murmur, clicks, rubs. LUNGS:Lungs clear to auscultation, no wheezes, rales, crackles, chest moves symmetrically ABD:bowel sounds normal, soft, non-tender, no guarding, rebound, rigidity, no masses noted, no hepatosplenomegaly MSCL: Non-tender, no muscle atrophy, muscles strength 5/5 upper and lower extremities, full range of motion, normal gait NEURO:CN 2-12 intact, sensation normal SKIN: Normal coloration, no pallor cyanosis. No erythema or rash. . Initial Vital Signs Initial Vital Signs: Vital Signs Temperature 98.7 F 11/23/19 18:12 Pulse Rate 101 H 11/23/19 18:12 Respiratory Rate 18 02/18/20 18:12 Blood Pressure 184/102 H 11/23/19 18:12 Pulse Oximetry 97 11/23/19 18:12 Scores GCS [place] coma scale eye opening: Spontaneous Alec coma scale verbal response: Orientated [place] coma scale motor response: Obey commands Alec coma scale total score: 15 Course Orders Ordered: Discontinued Medications Ketorolac Tromethamine (Toradol) 60 mg IM NOW ONE Stop: 11/23/19 19:33 Last Admin: 11/23/19 19:48 Dose: 60 mg Documented by: KASHIF Vital Signs Vital signs: Vital Signs - 8 hr 11/23/19 18:12 11/23/19 19:11 Temperature 98.7 F Pulse Rate 99 H 68 Pulse Rate [Right] 101 H Respiratory Rate 22 18 Blood Pressure [Right Arm] 181/97 H 165/95 H Pulse Oximetry 98 99 Medical Decision Making [facility] Narrative Medical decision making narrative: Discussed with patient finger CO level on monitor is <3, patient symptoms are mild at this time and she defers additional testing. She did receive Toradol in the past for headache and found it helpful but found the IM dose more helpful. She has zofran for nausea chronically and would like to take her own. We discussed that they did do testing recently with no abnormalities found. We did discuss other options such as as contacting local FD, they also have monitors as she does not trust the CO monitor bought and placed at work or that the [facility] is adequately testing the area. Discharge Plan Departure Patient Disposition: Home Clinical Impression: Environmental exposure Discharge Date/Time: 11/23/19 19:55 Instructions: Preventing Carbon Monoxide Poisoning Activity Restrictions/Additional Instructions: Follow-up with your physician for recheck in the next week. I would recommend contacting the local fire department if your having recurrent symptoms at work or suspect that there is a gas leak in you are not comfortable with the CO2 monitor that has been placed under unsure if the [facility] is appropriately testing. He may return to the ER for recurrent symptoms, severe worsening headaches, lightheadedness, passing out, new chest pain or shortness of breath, persistent vomiting, black or bloody stools, new weakness numbness or other new or concerning symptoms. Prescriptions: No Action ondansetron 4 mg tablet,disintegrating 4 mg PO Q8H PRN (Reason: nausea and vomiting) Qty: 30 RF: 0 sertraline [Zoloft] 100 mg tablet 200 mg PO DAILY Qty: 180 RF: 1 Premarin 0.625 mg/gram cream 0.625 mg VAG DAILY Qty: 30 RF: 3 lorazepam [Ativan] 0.5 mg tablet 0.25 mg PO TIDP PRN (Reason: anxiety) Qty: 10 RF: 0 Referrals: Mile De La Rosa DO [Primary Care Provider] -
[2019-11-23 19:11] VITALS: BP 165/95; PULSE 68; RESP 18; O2SAT 99
[2019-11-23] MEDS: KETOROLAC 60 MG/2 ML VIAL IM (19:48)
== END 2019-11-23 19:55 | disposition home or self-care (01) ==
PROVIDERS: Emergency Provider Emergency Medicine; PCP Family Medicine
DX: Z57.5 Occupational exposure to toxic agents in other industries (principal); Y99.0 Civilian activity done for income or pay
CPT/HCPCS: 96372; 99283; J1885

== ENCOUNTER → 2021-01-10 09:15 | Outpatient (CLI) | payer OTHER, MEDICAID, SELFPAY ==
[2021-01-10] MEDS: COVID-19 VACC #1, MRNA(MOD) 100 MCG/0.5 ML VIAL IM (09:22)
== END ==
PROVIDERS: PCP Family Medicine; Visit Provider Internal Medicine
DX: Z23 Encounter for immunization (principal)
CPT/HCPCS: 0011A; 91301

== ENCOUNTER → 2021-02-07 09:11 | Outpatient (CLI) | payer OTHER, MEDICAID, SELFPAY ==
[2021-02-07] MEDS: COVID-19 VACC #2, MRNA(MOD) 100 MCG/0.5 ML VIAL IM (09:17)
== END ==
PROVIDERS: PCP Family Medicine; Visit Provider Internal Medicine
DX: Z23 Encounter for immunization (principal)
CPT/HCPCS: 0012A; 91301